=== PATIENT | male | born 1980 | race Two or more races ===

== ENCOUNTER 2023-05-24 12:27 | Emergency (ER) | payer OTHER ==
[~2023-05-24] VITALS: Ht 175.3 cm; Wt 75.0 kg
[2023-05-24] MEDS ORDERED: HYDROcodone-ACET 5/325MG TAB PO ONE (18:15)
[2023-05-24 19:54] VITALS: BP 145/95; PULSE 95; RESP 16; TEMP 98.8; O2SAT 94
== END 2023-05-24 20:56 | disposition short-term general hospital (02) ==
LOC: ER 12:27
DX: H57.12 Ocular pain, left eye (principal); E10.39 Type 1 diabetes mellitus with other diabetic ophthalmic complication